=== PATIENT | female | born 1960 | race African-American/Black ===

== ENCOUNTER 2025-04-03 20:25 | Emergency (ER) | payer MEDICAID ==
[~2025-04-03] VITALS: Ht 160 cm; Wt 68.0 kg
[~2025-04-03 20:25] MED LIST: ACETAMINOPHEN #3; AMLODIPINE; CHLORTHALIDONE; MIRALAX; OMEPRAZOLE; PAROXETINE; SEROQUEL; TRAZODONE; VENTOLIN
[2025-04-03 20:30] VITALS: TEMP 98.6; O2SAT 99
[2025-04-04 00:05] VITALS: PULSE 80
[2025-04-04] MEDS: KETOROLAC 15MG/ML VIAL IM ONE (00:05)
[2025-04-04 00:06] VITALS: BP 162/99; RESP 18
[2025-04-04] MEDS: LIDOCAINE 5% PATCH TOP SCH (00:06)
[2025-04-04] MEDS ORDERED: NAPR-1176 MT (00:56)
[2025-04-04] MEDS ORDERED: LIDO-53 TP (00:56)
== END 2025-04-04 01:13 | disposition home or self-care (01) ==
LOC: ER 20:25
DX: M25.531 Pain in right wrist (principal); M25.552 Pain in left hip; I10 Essential (primary) hypertension
CPT/HCPCS: 99284; 73502; 73110; 96372; J1885